=== PATIENT | male | born 1960 | race Caucasian/White ===

== ENCOUNTER → 2019-06-18 | Outpatient (CLI) | payer OTHER ==
--- NOTE | 2019-06-18 14:31 | US ---
EXAMINATION TYPE: US scrotum with doppler. Grayscale and color Doppler Duplex imaging performed of fabian mcgowan scrotum. DATE OF EXAM: 06/18/2019 COMPARISON: NONE CLINICAL HISTORY: N49.2 testicular swelling, N50 Testicular pain. Patient has had intermittent swelling for years that has gotten worse over the last 3 months EXAM MEASUREMENTS: TESTICLES: Right Testicle: 6.1 x 3.0 x 2.8 cm Left Testicle: 4.7 x 2.8 x 3.9cm EPIDIDYMIS HEAD: Right Epididymis: not visualized due to large amount of fluid Left Epididymis: not visualized due to large amount of fluid Doppler performed to assess for testicular vascularity; good bilateral color flow and waveforms are s een. There is no evidence of testicular torsion. Presence of hydroceles: large hydrocele bilateral complex hydrocele with internal debris. No thick se ptations are seen. Presence of varicoceles: unable to assess due to large hydrocele Right hydrocele measuring approximately 20.1 x 10.6 x 16.cm IMPRESSION: Large complex bilateral hydroceles with the right hydrocele measuring up to 20.1 cm. Inte rnal hemorrhagic or proteinaceous debris is seen although no complex thick septations are noted nor i nternal vascularity. No sonographic evidence of testicular torsion at the time of exam.
== END | disposition home or self-care (01) ==
LOC: RADUSWWP 13:21
PROVIDERS: ATTEND Internal Medicine
DX: N43.3 Hydrocele, unspecified (principal)
CPT/HCPCS: 76870; 93975

== ENCOUNTER 2023-12-10 13:17 | Emergency (ER) | payer OTHER ==
[2023-12-10] MEDS: KETOROLAC 15 MG/ML 1 ML VIAL IVP STA (14:27)
[2023-12-10 14:38] LABS: Basophils % (A) 0 %; Eosinophils # (A) 0.1 k/uL (0-0.7); Eosinophils % (A) 0 %; HCT 44.6 % (39.0-53.0); HGB 14.6 gm/dL (13.0-17.5); Lymphocytes % (A) 8 %; MCH 30.1 pg (25.0-35.0); MCHC 32.6 g/dL (31.0-37.0); MCV 92.3 fL (80.0-100.0); Mean Platelet Volume 6.8; Monocytes # (A) 0.7 k/uL (0-1.0); Monocytes % (A) 6 %; Neutrophils % (A) 83 %; Platelet Count 284 k/uL (150-450); RBC 4.84 m/uL (4.30-5.90); RDW 12.8 % (11.5-15.5); WBC 12.1 k/uL (3.8-10.6)
--- NOTE | 2023-12-10 14:43 | ED ---
Extremity Problem HPI - General Chief complaint: Extremity Problem,Nontraumatic Stated complaint: R ankle injury Time Seen by Provider: 12/10/23 14:40 Source: patient, RN notes reviewed Mode of arrival: ambulatory Limitations: no limitations - History of Present Illness Initial comments: 63-year-old male presented to the ER with a chief complaint of left ankle pain. Patient reports on Monday he was doing yard work moving heavy logs. That night he started to experience right ankle pain and swelling. He denies any known injuries or traumas. States since then he has been noticing increasing redness and tenderness to his right calf. She denies any fevers but does endorse mild chills. Denies any history of gout or blood clots. Patient was s moking marijuana for pain control. Denies any shortness of breath, chest pain, abdominal pain, or peripheral edema. - Related Data Previous Rx's Medication Instructions Recorded Cephalexin [Keflex] 500 mg PO Q12HR 7 Days #14 cap 12/10/23 Ibuprofen 600 mg PO Q8H 7 Days #21 tab 12/10/23 Sulfamethox-Tmp 800-160Mg [Bactrim 1 tab PO Q12HR 7 Days #14 tab 12/10/23 DS 800-160 mg] methylPREDNISolone [Medrol Dose 0 mg PO DIRECTED #1 packet 12/10/23 Pack] Allergies Allergy/AdvReac Type Severity Reaction Status Date / Time No Known Allergies Allergy Verified 12/10/23 13:28 Review of Systems ROS Statement: Those systems with pertinent positive or pertinent negative responses have been documented in the HPI. ROS Other: All systems not noted in ROS Statement are negative. Past Medical History Past Medical History: No Reported History History of Any Multi-Drug Resistant Organisms: None Reported Past Surgical History: No Surgical Hx Reported Past Psychological History: No Psychological Hx Reported Smoking Status: Former smoker Past Alcohol Use History: Occasional Past Drug Use History: Marijuana General Exam Limitations: no limitations General appearance: alert, in no apparent distress Respiratory exam: Present: normal lung sounds bilaterally. Absent: respiratory distress, wheezes, rales, rhonchi, stridor Cardiovascular Exam: Present: regular rate, normal rhythm, normal heart sounds. Absent: systolic murmur, diastolic murmur, rubs, gallop, clicks Extremities exam: Present: other (Edema, erythema to right ankle extending into calf. Calf tenderness present. Warm to touch. No wounds or sores. 2+ bilateral dorsalis pedis pulse. Patient has limited active range of motion of ankle due to pain.) Neurological exam: Present: alert, oriented X3, CN II-XII intact Skin exam: Present: warm, dry, intact, normal color. Absent: rash Course Vital Signs 12/10/23 12/10/23 13:24 17:16 Temperature 98.0 F 98.1 F Pulse Rate 79 81 Respiratory 17 18 Rate Blood Pressure 127/82 124/89 O2 Sat by Pulse 96 97 Oximetry Medical Decision Making - Medical Decision Making Was pt. sent in by a medical professional or institution (, PA, SAP BW BI DEVELOPER, urgent care, hospital, or [facility]...) When possible be specific @ -No Did you speak to anyone other than the patient for history (EMS, parent, family, police, friend...)? What history was obtained from this source @ -No Did you review nursing and triage notes (agree or disagree)? Why? @ -I reviewed and agree with nursing and triage notes Were old charts reviewed (outside hosp., previous admission, EMS record, old EKG, old radiological studies, urgent care reports/EKG's, [facility] records)? Report findings @ -No old charts were reviewed Differential Diagnosis (chest pain, altered mental status, abdominal pain women, abdominal pain men, vaginal bleeding, weakness, fever, dyspnea, syncope, headache, dizziness, GI bleed, back pain, seizure, CVA, palpatations, mental health, musculoskeletal)? @Differential Musculoskeletal: Muscular strain, contusion, ligament sprain, fr acture, arthritis, septic arthritis, bursitis, cellulitis, muscle spasm, nerve compression, DVT, arterial occlusion, herpes zoster, electrolyte abnormality, tumor.... This is not meant to be in all inclusive list EKG interpreted by me (3pts min.). @ -[None X-rays interpreted by me (1pt min.). @ -Right ankle x-ray interpreted by me negative for acute osseous process. CT interpreted by me (1pt min.). @ -[None done U/S interpreted by me (1pt. min.). @ -[Ultrasound venous Doppler right lower extremity negative for acute evidence of DVT. What testing was considered but not performed or refused? (CT, X-rays, U/S, labs)? Why? @ -None What meds were considered but not given or refused? Why? @ -None Did you discuss the management of the patient with other professionals (professionals i.e. , PA, SAP [employer] BI DEVELOPER, lab, RT, psych nurse, social work faculty member, cdl bulk driver, teacher, botanical technical officer, embedded case manager)? Give summary @ -No Was smoking cessation discussed for >3mins.? @ -[I discussed smoking cessation for greater than 3 minutes. The risk of smoking were discussed with the patient including but not limited to risks of cancer, stroke, coronary artery disease and COPD. Also discussed with patient were multiple methods of quitting smoking. Lastly we discussed the financial cost of smoking. Was critical care preformed (if so, how long)? @ -No Were there social determinants of health that impacted care today? How? (Homelessness, low income, unemployed, alcoholism, drug addiction, transportation, low edu. Level, literacy, decrease access to med. care, halfway, rehab)? @ -[Patient is low income and uses public transportation. He has difficulty with follow-up appointments as he also does not have a cell phone and limited access to transportation. Was there de-escalation of care discussed even if they declined (Discuss DNR or withdrawal of care, Hospice)? DNR status @ -No What co-morbidities impacted this encounter? (DM, HTN, Smoking, COPD, CAD, Cancer, CVA, ARF, Chemo, Hep., AIDS, mental health diagnosis, sleep apnea, morbid obesity)? @ -[Smoker Was patient admitted / discharged? Hospital course, mention meds given and route, prescriptions, significant lab abnormalities, going to OR and other pertinent info. @ -Discharge. 63-year-old male presented to ER with a chief complaint of right ankle swelling and pain. History and physical exam completed. Vitals stable. Patient no signs of acute distress and nontoxic-appearing. Right lower extremity neurovascular intact. There was significant swelling, erythema and warmth to right ankle. Limited active ROM due to pain. NO wound or lesion present. Laboratory studies obtained to rule out gout attack. Laboratory studies remarkable for leukocytosis 12.1 with a left shift which is likely reactive to patient's smoking habits. Uric acid 4.7, CRP 17.3. Ultrasound venous Doppler right lower extremity negative for acute evidence of DVT. X-rays obtained to rule out osseous process. X-rays negative. Pain likely to be related to pseudogout with overlying cellulitis. Patient will be started on Keflex, Bactrim, ibuprofen and steroids. Patient given crutches for ambulation at home due to pain. Strict return parameters discussed. Advise close follow-up with PCP, referral given. Patient discharged in stable condition. Patient verbally expressed understanding and agreed with care plan. Case discussed with ED attending, Dr. Oconnor. Undiagnosed new problem with uncertain prognosis? @ -[No Drug Therapy requiring intensive monitoring for toxicity (Heparin, Nitro, Insulin, Cardizem)? @ -No Were any procedures done? @ -No Diagnosis/symptom? @ -[Pseudogout/cellulitis Acute, or Chronic, or Acute on Chronic? @ -Acute Uncomplicated (without systemic symptoms) or Complicated (systemic symptoms)? @ -[Uncomplicated Side effects of treatment? @ -[No Exacerbation, Progression, or Severe Exacerbation? @ -No Poses a threat to life or bodily function? How? (Chest pain, USA, IA, pneumonia, PE, COPD, DKA, ARF, appy, cholecystitis, CVA, Diverticulitis, Homicidal, Suicidal, threat to staff... and all critical care pts) @ -No - Lab Data Result diagrams: 12/10/23 14:14 12/10/23 14:14 Lab Results 12/10/23 12/10/23 Range/Units 14:14 14:14 WBC 12.1 H (3.8-10.6) k/uL RBC 4.84 (4.30-5.90) m/uL Hgb 14.6 (13.0-17.5) gm/dL Hct 44.6 (39.0-53.0) % MCV 92.3 (80.0-100.0) fL MCH 30.1 (25.0-35.0) pg MCHC 32.6 (31.0-37.0) g/dL RDW 12.8 (11.5-15.5) % Plt Count 284 (150-450) k/uL MPV 6.8 Neutrophils % 83 % Lymphocytes % 8 % Monocytes % 6 % Eosinophils % 0 % Basophils % 0 % Neutrophils # 10.0 H (1.3-7.7) k/uL Lymphocytes # 1.0 (1.0-4.8) k/uL Monocytes # 0.7 (0-1.0) k/uL Eosinophils # 0.1 (0-0.7) k/uL Basophils # 0.0 (0-0.2) k/uL Sodium 134 L (137-145) mmol/L Potassium 3.4 L (3.5-5.1) mmol/L Chloride 99 (98-107) mmol/L Carbon Dioxide 24 (22-30) mmol/L Anion Gap 11 mmol/L BUN 13 (9-20) mg/dL Creatinine 0.46 L (0.66-1.25) mg/dL Est GFR (CKD-EPI)AfAm >90 (>60 ml/min/1.73 sqM) Est GFR (CKD-EPI)NonAf >90 (>60 ml/min/1.73 sqM) Glucose 106 H (74-99) mg/dL Uric Acid 4.7 (3.5-8.5) mg/dL Calcium 9.0 (8.4-10.2) mg/dL Total Bilirubin 1.1 (0.2-1.3) mg/dL AST 21 (17-59) U/L ALT 19 (4-49) U/L Alkaline Phosphatase 74 (38-126) U/L C-Reactive Protein 17.3 H (<1.0) mg/dL Total Protein 6.7 (6.3-8.2) g/dL Albumin 3.9 (3.5-5.0) g/dL - Radiology Data Radiology results: report reviewed, image reviewed Disposition Clinical Impression: Cellulitis, Pseudogout of ankle Disposition: HOME SELF-CARE Condition: Stable Instructions (If sedation given, give patient instructions): Swollen Joint (ED) Additional Instructions: Follow-up with PCP in next 1-2 days. Return to the ER for any new or worsening concerns. Prescriptions: Sulfamethox-Tmp 800-160Mg [Bactrim DS 800-160 mg] 1 tab PO Q12HR 7 Days #14 tab Ibuprofen 600 mg PO Q8H 7 Days #21 tab Cephalexin [Keflex] 500 mg PO Q12HR 7 Days #14 cap methylPREDNISolone [Medrol Dose Pack] 0 mg PO DIRECTED #1 packet Is patient prescribed a controlled substance at d/c from ED?: No Referrals: None,Stated [Primary Care Provider] - 1-2 days Jm Caballero MD [STAFF PHYSICIAN] - 1-2 days Forms: PH Area PCPs Time of Disposition: 16:29
[2023-12-10 14:58] LABS: ALT 19 U/L (4-49); AST 21 U/L (17-59); African American GFR (CKD) >90 (>60 ml/min/1.73 sqM); Albumin 3.9 g/dL (3.5-5.0); Alkaline Phosphatase 74 U/L (38-126); Anion Gap 11 mmol/L; Blood Urea Nitrogen 13 mg/dL (9-20); Carbon Dioxide 24 mmol/L (22-30); Chloride 99 mmol/L (98-107); Glucose 106 mg/dL (74-99); Non-African American GFR(CKD) >90 (>60 ml/min/1.73 sqM); Potassium 3.4 mmol/L (3.5-5.1); Sodium 134 mmol/L (137-145); Total Bilirubin 1.1 mg/dL (0.2-1.3); Total Protein 6.7 g/dL (6.3-8.2); Uric Acid 4.7 mg/dL (3.5-8.5)
--- NOTE | 2023-12-10 14:58 | US ---
EXAMINATION TYPE: US venous doppler duplex LE RT DATE OF EXAM: 12/10/2023 2:39 PM COMPARISON: NONE CLINICAL INDICATION: Male, 63 years old with history of swelling; Redness and swelling to right ankle x 4 days; patient denies any other signs, symptoms, or relevant history SIDE PERFORMED: Right TECHNIQUE: The lower extremity deep venous system is examined utilizing real time linear array sonog naveen with graded compression, doppler sonography and color-flow sonography. VESSELS IMAGED: Common Femoral Vein Deep Femoral Vein Greater Saphenous Vein * Femoral Vein Popliteal Vein Small Saphenous Vein * Proximal Calf Veins (* superficial vessels) Right Leg: Negative for DVT Record Maker notes: Multiple enlarged lymph nodes within right groin. Bakers cyst within right popliteal fossa measuring 5.5 x 3.9 x 1.8 cm. IMPRESSION: 1. No evidence for DVT within the right lower extremity imaged from the groin to the upper calf. 2. Moderate-sized Khan's cyst in the popliteal fossa. 3. Prominent lymph nodes in the inguinal region may be reactive/post inflammatory. Recommend further clinical assessment and ultrasound in 6-8 weeks to ensure improvement.
[2023-12-10 15:09] LABS: C Reactive Protein 17.3 mg/dL (<1.0)
--- NOTE | 2023-12-10 15:55 | XR ---
EXAMINATION TYPE: XR ankle complete RT DATE OF EXAM: 12/10/2023 COMPARISON: NONE HISTORY: 63-year-old male with swelling TECHNIQUE: 3 views FINDINGS: Circumferential soft tissue swelling at the ankle. Ankle mortise is congruent with preserva tion of the distal tibiofibular overlap. Talar dome is intact. Subtalar joint align. Small delineatio n Achilles tendon. No acute fracture, subluxation, dislocation. IMPRESSION: Generalized soft tissue swelling. No acute osseous abnormality seen.
[2023-12-10 17:17] VITALS: BP 124/89; PULSE 81; RESP 18; TEMP 98.1
== END 2023-12-10 17:16 | disposition home or self-care (01) ==
LOC: EC 13:17
DX: L03.115 Cellulitis of right lower limb (principal); M10.9 Gout, unspecified; F17.200 Nicotine dependence, unspecified, uncomplicated
CPT/HCPCS: 99406; 99284; 96374; 36415; 80053; 84550; 85025; 86140; 73610; 93971; J1885